=== PATIENT | female | born 1965 | race Caucasian/White ===

== ENCOUNTER 2016-06-14 09:21 | Emergency (ER) | payer OTHER | END 2016-06-14 12:02 | disposition home or self-care (01) | LOC: ER1 09:21 | DX: G43.919 Migraine, unspecified, intractable, without status migrainosus (principal); I10 Essential (primary) hypertension; M32.9 Systemic lupus erythematosus, unspecified; F17.210 Nicotine dependence, cigarettes, uncomplicated; Z79.01 Long term (current) use of anticoagulants; Z79.899 Other long term (current) drug therapy | CPT/HCPCS: 96372; 99283; J1100; J1200; J1885; J2765 ==

== ENCOUNTER 2016-07-17 21:00 | Emergency (ER) | payer OTHER | END 2016-07-17 21:48 | disposition home or self-care (01) | LOC: ER1 21:00 | DX: L55.0 Sunburn of first degree (principal); F17.210 Nicotine dependence, cigarettes, uncomplicated; G40.909 Epilepsy, unspecified, not intractable, without status epilepticus; M32.9 Systemic lupus erythematosus, unspecified; I51.9 Heart disease, unspecified; Z79.01 Long term (current) use of anticoagulants; Z79.899 Other long term (current) drug therapy | CPT/HCPCS: 99283 ==

== ENCOUNTER 2016-07-18 13:53 | Emergency (ER) | payer OTHER | END 2016-07-18 15:55 | disposition home or self-care (01) | LOC: ER1 13:53 | DX: L55.0 Sunburn of first degree (principal) | CPT/HCPCS: 96372; 99282; J1100 ==

== ENCOUNTER → 2021-02-11 | Outpatient (CLI) | payer OTHER ==
[~2021-02-11] MED LIST: AIMOVIG AU140 MG/1 M SQ; AUGMENTIN 875-1 EACH PO; BACTRIM DS TAB1 EACH PO; BETAPACE AF80 MG PO; CEFUROXIME500 MG PO; CLINDAMYCIN HC300 MG PO; COMBIVENT0.074 GM/I INH; CORDARONE 200M200 MG PO; ELIQUIS5 MG PO; ESTRADIOL1 EAC2 TD; HYDROCODON-ACE1 EAC4 PO; KEFLEX CAP 500500 MG PO; KEFLEX500 MG PO; KLONOPIN TAB 00.5 MG PO; LEVETIRACETAM1000 MG PO; LIPITOR40 MG PO; LISINOPRIL10 MG PO; LISINOPRIL2.5 MG PO; MEDROL4 MG PO; NEURONTIN 300300 MG PO; PHENERGAN 25 MG25 M1 PO; PRAVASTATIN SOD20 MG PO; ZOFRAN ODT 4 MG4 MG PO
== END ==
LOC: RAD 10:07
DX: M25.552 Pain in left hip (principal)
CPT/HCPCS: 73502

== ENCOUNTER → 2021-10-08 | Day surgery (SDC) | payer OTHER ==
[~2021-10-08] MED LIST changes: +KEPPRA1000 MG PO
== END | disposition home or self-care (01) ==
LOC: OR 08:41
DX: K57.30 Diverticulosis of large intestine without perforation or abscess without bleeding (principal); K29.50 Unspecified chronic gastritis without bleeding; K56.50 Intestinal adhesions [bands], unspecified as to partial versus complete obstruction; K64.1 Second degree hemorrhoids; E66.9 Obesity, unspecified; I11.0 Hypertensive heart disease with heart failure; I50.22 Chronic systolic (congestive) heart failure; E78.5 Hyperlipidemia, unspecified; F41.9 Anxiety disorder, unspecified; F17.210 Nicotine dependence, cigarettes, uncomplicated; Z68.31 Body mass index [BMI] 31.0-31.9, adult; Z80.0 Family history of malignant neoplasm of digestive organs; Z79.01 Long term (current) use of anticoagulants; Z79.899 Other long term (current) drug therapy
CPT/HCPCS: J7040

== ENCOUNTER → 2021-10-14 | Outpatient (CLI) | payer OTHER | LOC: KOH-I 08:00 | DX: R10.84 Generalized abdominal pain (principal) | CPT/HCPCS: 76705 ==